=== PATIENT | female | born 1985 | race Caucasian/White ===

== ENCOUNTER 2021-11-06 12:42 | Emergency (ER) | payer MEDICAID ==
[~2021-11-06] VITALS: Ht 160 cm; Wt 147.4 kg
[2021-11-06 13:07] VITALS: BP_SYST 110
[2021-11-06 14:30] LABS: BASOPHILS # (AUTO) 0.1 K/uL (0.0-0.2); BASOPHILS % (AUTO) 0.8 % (0.0-2.0); EOSINOPHILS # (AUTO) 0.2 K/uL (0.0-0.4); EOSINOPHILS % (AUTO) 2.2 % (0.0-4.0); HEMATOCRIT 39.1 % (36-48); HEMOGLOBIN 12.8 g/dL (12.0-16.0); LYMPHOCYTES # (AUTO) 1.9 K/uL (1.0-5.5); LYMPHOCYTES % (AUTO) 26.5 % (20.5-51.5); MEAN CORPUSCULAR HEMOGLOBIN 26 pg (27-31); MEAN CORPUSCULAR HGB CONC 33 % (32-36); MEAN CORPUSCULAR VOLUME 79 fL (79.0-98.0); MONOCYTES # (AUTO) 0.4 K/uL (0.0-1.0); MONOCYTES % (AUTO) 5.6 % (1.7-9.3); NEUTROPHILS # (AUTO) 4.7 K/uL (1.8-7.7); NEUTROPHILS % (AUTO) 64.9 % (40.0-70.0); PLATELET COUNT (AUTO) 329 K/uL (130-430); RED BLOOD CELL COUNT(AUTO) 4.93 MIL/uL (4.2-6.2); RED CELL DISTRIBUTION WIDTH 14.6 % (9.0-15.0); WHITE BLOOD COUNT (AUTO) 7.2 K/uL (4.8-10.8)
[2021-11-06 15:02] LABS: CALCIUM 9.3 mg/dL (8.4-11.0); CREATININE 0.77 mg/dL (0.55-1.30)
[2021-11-06 15:13] LABS: ALBUMIN 3.4 g/dL (3.4-4.8); TOTAL BILIRUBIN 0.2 mg/dL (0.0-1.0)
--- NOTE | 2021-11-06 15:37 | NUR ---
36YO F WITH C/O RUQ PAIN X 3 WEEKS. PAIN 7/10. ALSO COMPLAINS OF DIARRHEA, DENIES VOMITING. DENIES URINARY PROBLEMS. ERMD MADE AWARE OF PT STATUS. PMH: PRE-DM
--- NOTE | 2021-11-06 15:42 | NUR ---
DR WATSON IN TRIAGE TO SPEAK WITH PT
--- NOTE | 2021-11-06 15:50 | NUR ---
Patient ambulated to chair (hallway 3)
[2021-11-06] MEDS ORDERED: MAG HYDROX/AL HYDROX/SIMETH 30 ML, DICYCLOMINE HCL 20 MG, LIDOCAINE VISCOUS 2% 15ML (PO... PO ONE ×3 (16:00)
[2021-11-06] MEDS ORDERED: FAMOTIDINE 20 MG TABLET PO ONE (16:00)
[2021-11-06] MEDS ORDERED: KETOROLAC TROMETHAMINE 30 MG VIAL IM ONE (16:00)
[2021-11-06 16:30] LABS: BILIRUBIN,URINE NEGATIVE (NEGATIVE); BLOOD, URINE 3+ (NEGATIVE); CLARITY/URINE SL CLOUDY (CLEAR); COLOR,URINE YELLOW (YELLOW); GLUCOSE,URINE NEGATIVE (NEGATIVE); KETONES,URINE NEGATIVE (NEGATIVE); LEUKOCYTE ESTERASE ,URINE NEGATIVE (NEGATIVE); NITRITE, URINE NEGATIVE (NEGATIVE); PROTEIN URINE NEGATIVE (NEGATIVE); UROBILINOGEN,URINE 0.2 (0.2-1.0)
[2021-11-06] MEDS: BISMUTH SUBSALICYLATE 240 ML BOTTLE PO PRN ×2 (16:36→17:48)
[2021-11-06 18:44] LABS: BACTERIA,URINE FEW /HPF (None Seen); MUCUS,URINE None Seen /LPF (None Seen); WBC,URINE 0-3 /HPF (0-3)
[2021-11-06] MEDS ORDERED: IBUP-1969 PO (18:55)
[2021-11-06] MEDS ORDERED: ACETAMINOPHEN 500 MG TABLET PO ONE (19:00)
[2021-11-06 19:05] VITALS: BP_SYST 110
--- NOTE | 2021-11-06 19:05 | NUR ---
Patient given written and verbal discharge instructions and verbalizes understanding. ER MD discussed with patient the results and treatment provided. Patient in stable condition. ID arm band removed. Rx of IBUPROFEN given. Patient educated on pain management and to follow up with PMD. Pain Scale 3. Opportunity for questions provided and answered. Medication side effect fact sheet provided.
== END 2021-11-06 19:04 | disposition home or self-care (01) ==
LOC: SED 12:42
DX: A08.4 Viral intestinal infection, unspecified (principal); N23 Unspecified renal colic; R82.81 Pyuria; R31.9 Hematuria, unspecified; R19.7 Diarrhea, unspecified; Z79.899 Other long term (current) drug therapy
CPT/HCPCS: 99284; 76700; 80053; 81000; 84702; 83690; 85025; 36415; 81025; 96372; J2001; J1885

== ENCOUNTER 2023-02-25 17:42 | Emergency (ER) | payer MEDICAID ==
[~2023-02-25] VITALS: Ht 154.9 cm; Wt 140.2 kg
[~2023-02-25 17:42] MED LIST: IBUP-1969 PO
[2023-02-25 17:47] VITALS: BP_SYST 159; PULSE 69; RESP 19; TEMP 97.8; O2SAT 97
[2023-02-25] MEDS ORDERED: ONDANSETRON HCL 4 MG/2 ML VIAL IVP ONE (18:30)
[2023-02-25] MEDS ORDERED: KETOROLAC TROMETHAMINE 30 MG VIAL IVP ONE (18:30)
[2023-02-25] MEDS ORDERED: NACL 0.9% 1,000 ML IV ONE (18:30)
[2023-02-25 19:15] LABS: BASOPHILS % (AUTO) 0.5 % (0.0-2.0); EOSINOPHILS % (AUTO) 0.7 % (0.0-4.0); HEMATOCRIT 41.1 % (36-48); HEMOGLOBIN 13.3 g/dL (12.0-16.0); LYMPHOCYTES # (AUTO) 1.2 K/uL (1.0-5.5); LYMPHOCYTES % (AUTO) 21.3 % (20.5-51.5); MEAN CORPUSCULAR HEMOGLOBIN 26 pg (27-31); MEAN CORPUSCULAR HGB CONC 32 % (32-36); MEAN CORPUSCULAR VOLUME 82 fL (79.0-98.0); MONOCYTES # (AUTO) 0.3 K/uL (0.0-1.0); MONOCYTES % (AUTO) 5.8 % (1.7-9.3); NEUTROPHILS # (AUTO) 4.2 K/uL (1.8-7.7); NEUTROPHILS % (AUTO) 71.7 % (40.0-70.0); PLATELET COUNT (AUTO) 327 K/uL (130-430); RED BLOOD CELL COUNT(AUTO) 5.02 MIL/uL (4.2-6.2); RED CELL DISTRIBUTION WIDTH 14.3 % (9.0-15.0); WHITE BLOOD COUNT (AUTO) 5.8 K/uL (4.8-10.8)
[2023-02-25 19:34] VITALS: TEMP 97.9
[2023-02-25 19:34] LABS: CALCIUM 8.6 mg/dL (8.4-11.0); CREATININE 0.81 mg/dL (0.55-1.30); POTASSIUM 3.3 mmol/L (3.5-5.1)
[2023-02-25 19:38] LABS: ALBUMIN 3.3 g/dL (3.4-4.8); TOTAL BILIRUBIN 0.3 mg/dL (0.0-1.0); TOTAL PROTEIN, SERUM 7.9 g/dL (6.4-8.3)
[2023-02-25 20:16] LABS: BILIRUBIN,URINE NEGATIVE (NEGATIVE); BLOOD, URINE NEGATIVE (NEGATIVE); CLARITY/URINE CLEAR (CLEAR); COLOR,URINE YELLOW (YELLOW); GLUCOSE,URINE NEGATIVE (NEGATIVE); KETONES,URINE NEGATIVE (NEGATIVE); LEUKOCYTE ESTERASE ,URINE NEGATIVE (NEGATIVE); NITRITE, URINE NEGATIVE (NEGATIVE); PROTEIN URINE NEGATIVE (NEGATIVE); UROBILINOGEN,URINE 0.2 (0.2-1.0)
[2023-02-25] MEDS ORDERED: ONDA-8 TL (20:35)
[2023-02-25 21:02] VITALS: BP_SYST 119; PULSE 73; RESP 20; O2SAT 94
== END 2023-02-25 21:02 | disposition home or self-care (01) ==
LOC: SED 17:42
DX: A08.4 Viral intestinal infection, unspecified (principal); K80.20 Calculus of gallbladder without cholecystitis without obstruction; R10.13 Epigastric pain; R11.2 Nausea with vomiting, unspecified; R19.7 Diarrhea, unspecified; Z79.899 Other long term (current) drug therapy
CPT/HCPCS: 99285; 96374; 76705; 96361; 96375; 80053; 81001; 83690; 85025; 36415; 81025; 81003; J1885; J2405; J7030

== ENCOUNTER 2023-04-20 02:08 | Emergency (ER) | payer MEDICAID ==
[~2023-04-20] VITALS: Ht 154.9 cm; Wt 144.7 kg
[~2023-04-20 02:08] MED LIST changes: +ONDA-8 TL
[2023-04-20 02:17] VITALS: BP_SYST 142; PULSE 96; RESP 20; TEMP 101.9; O2SAT 96
[2023-04-20] MEDS ORDERED: KETOROLAC TROMETHAMINE 30 MG VIAL IM ONE (02:45)
[2023-04-20] MEDS ORDERED: ACETAMINOPHEN 500 MG TABLET PO ONE (02:45)
[2023-04-20 03:27] LABS: INFLUENZA TYPE A Negative (NEGATIVE); INFLUENZA TYPE B NEGATIVE (NEGATIVE)
[2023-04-20 03:33] LABS: COVID19 ANTIGEN SOFIA FIA POSITIVE (NEGATIVE)
[2023-04-20 03:48] VITALS: BP_SYST 134; PULSE 86; RESP 18; TEMP 100.3; O2SAT 96
== END 2023-04-20 03:48 | disposition home or self-care (01) ==
LOC: SED 02:08
DX: U07.1 COVID-19 (principal); R50.9 Fever, unspecified; M79.10 Myalgia, unspecified site; J02.9 Acute pharyngitis, unspecified; Z79.899 Other long term (current) drug therapy
CPT/HCPCS: 99283; 87426; 36415; 81025; 96372; 87804 ×2; J1885

== ENCOUNTER 2023-08-08 23:31 | Emergency (ER) | payer MEDICAID ==
[~2023-08-08] VITALS: Ht 154.9 cm; Wt 145.1 kg
[2023-08-08 23:43] VITALS: BP_SYST 160; PULSE 73; RESP 20; TEMP 97.8; O2SAT 97
[2023-08-09 00:55] LABS: BASOPHILS # (AUTO) 0.1 K/uL (0.0-0.2); BASOPHILS % (AUTO) 0.6 % (0.0-2.0); EOSINOPHILS # (AUTO) 0.1 K/uL (0.0-0.4); EOSINOPHILS % (AUTO) 0.5 % (0.0-4.0); HEMATOCRIT 40.3 % (36-48); HEMOGLOBIN 13.3 g/dL (12.0-16.0); LYMPHOCYTES # (AUTO) 1.8 K/uL (1.0-5.5); MEAN CORPUSCULAR HEMOGLOBIN 27 pg (27-31); MEAN CORPUSCULAR HGB CONC 33 % (32-36); MEAN CORPUSCULAR VOLUME 81 fL (79.0-98.0); MONOCYTES # (AUTO) 0.6 K/uL (0.0-1.0); NEUTROPHILS # (AUTO) 7.4 K/uL (1.8-7.7); NEUTROPHILS % (AUTO) 74.9 % (40.0-70.0); PLATELET COUNT (AUTO) 358 K/uL (130-430); RED BLOOD CELL COUNT(AUTO) 4.98 MIL/uL (4.2-6.2); RED CELL DISTRIBUTION WIDTH 13.8 % (9.0-15.0); WHITE BLOOD COUNT (AUTO) 9.8 K/uL (4.8-10.8)
[2023-08-09 01:05] LABS: BILIRUBIN,URINE NEGATIVE (NEGATIVE); BLOOD, URINE NEGATIVE (NEGATIVE); CLARITY/URINE CLEAR (CLEAR); COLOR,URINE YELLOW (YELLOW); GLUCOSE,URINE NEGATIVE (NEGATIVE); KETONES,URINE 1+ (NEGATIVE); LEUKOCYTE ESTERASE ,URINE NEGATIVE (NEGATIVE); NITRITE, URINE NEGATIVE (NEGATIVE); PROTEIN URINE NEGATIVE (NEGATIVE); UROBILINOGEN,URINE 0.2 (0.2-1.0)
[2023-08-09 01:18] LABS: ALBUMIN 3.6 g/dL (3.4-4.8); BILIRUBIN,DIRECT 0.1 mg/dL (0.0-0.3); CALCIUM 8.6 mg/dL (8.4-11.0); CREATININE 0.99 mg/dL (0.55-1.30); POTASSIUM 3.9 mmol/L (3.5-5.1); TOTAL BILIRUBIN 0.4 mg/dL (0.0-1.0); TOTAL PROTEIN, SERUM 8.4 g/dL (6.4-8.3)
[2023-08-09] MEDS: NACL 0.9% 1,000 ML IV ONE (01:30)
[2023-08-09] MEDS: KETOROLAC TROMETHAMINE 15 MG VIAL IVP ONE (01:31)
[2023-08-09] MEDS: ONDANSETRON HCL 4 MG/2 ML VIAL IVP ONE (01:32)
[2023-08-09] MEDS ORDERED: LOPE2CAP PO (04:18)
[2023-08-09] MEDS ORDERED: ONDA-8 TL (04:18)
[2023-08-09 04:35] VITALS: BP_SYST 110; PULSE 62; RESP 16; TEMP 98.4; O2SAT 94
== END 2023-08-09 04:35 | disposition home or self-care (01) ==
LOC: SED 23:31
DX: K80.50 Calculus of bile duct without cholangitis or cholecystitis without obstruction (principal); R10.9 Unspecified abdominal pain; R11.0 Nausea; R19.7 Diarrhea, unspecified; Z79.899 Other long term (current) drug therapy
CPT/HCPCS: 99285; 80076; 80048; 81001; 83690; 85025; 36415; 81025; 81003; 74176; 96374; 76705; 96361; 96375; J1885; J2405; J7030

== ENCOUNTER 2024-02-15 15:22 | Emergency (ER) | payer MEDICAID ==
[~2024-02-15] VITALS: Ht 152.4 cm; Wt 132.9 kg
[2024-02-15 15:22] VITALS: BP_SYST 112; PULSE 78; RESP 18; TEMP 97.2; O2SAT 97
[~2024-02-15 15:22] MED LIST changes: +LOPE2CAP PO
[2024-02-15] MEDS: cephALEXin 500 MG CAPSULE PO ONE (16:48)
[2024-02-15] MEDS: KETOROLAC TROMETHAMINE 60 MG/2 ML VIAL IM ONE (16:50)
[2024-02-15] MEDS ORDERED: IBUP-1969 PO (18:13)
[2024-02-15] MEDS ORDERED: DICL20GE TP (18:13)
[2024-02-15] MEDS ORDERED: CEPH-548 PO (18:14)
[2024-02-15 18:31] VITALS: BP_SYST 112; PULSE 78; RESP 18; TEMP 97.2; O2SAT 97
== END 2024-02-15 18:30 | disposition home or self-care (01) ==
LOC: SED 15:22
DX: S90.31XA Contusion of right foot, initial encounter (principal); M25.571 Pain in right ankle and joints of right foot; E11.9 Type 2 diabetes mellitus without complications; W01.0XXA Fall on same level from slipping, tripping and stumbling without subsequent striking against object, initial encounter; Y93.89 Activity, other specified; Y92.89 Other specified places as the place of occurrence of the external cause; Y99.8 Other external cause status
CPT/HCPCS: 99284; 72220; 73590; 73610; 73630; 96372; J1885